=== PATIENT | male | born 1970 | race Hispanic/Latino ===

== ENCOUNTER 2016-11-06 14:24 | Emergency (ER) | payer OTHER ==
[~2016-11-06] VITALS: Ht 167.6 cm; Wt 95.0 kg
[~2016-11-06 14:24] MED LIST: FLEXERIL5 M1 PO; NAPROSYN500 MG PO
[2016-11-06] MEDS ORDERED: LOSARTAN POTASS50 MG PO (17:00)
[2016-11-06] MEDS ORDERED: AUGMENTIN875TAB PO (20:14)
[2016-11-06] MEDS ORDERED: PERCOCET 5/325M1 TAB PO (20:14)
[2016-11-06 20:25] VITALS: BP 118/73
== END 2016-11-06 20:25 | disposition home or self-care (01) | DRG 605 ==
LOC: ED 14:24
PROC: 0HQGXZZ Repair Left Hand Skin, External Approach (ICD-10-PCS; principal; 2016-11-06)
DX: S61.211A Laceration without foreign body of left index finger without damage to nail, initial encounter (principal); I10 Essential (primary) hypertension; W31.2XXA Contact with powered woodworking and forming machines, initial encounter

== ENCOUNTER 2017-07-12 17:09 | Emergency (ER) | payer BC ==
[~2017-07-12] VITALS: Ht 167.6 cm; Wt 88.4 kg
[~2017-07-12 17:09] MED LIST changes: +AUGMENTIN875TAB PO; +LOSARTAN POTASS50 MG PO; +PERCOCET 5/325M1 TAB PO
[2017-07-12 18:31] LABS: HEMATOCRIT 41.9 % (39.0-50.0); HEMOGLOBIN 14.5 g/dl (14.0-18.0); IMMATURE GRANULOCYTES 0.3 % (0.0-1.0); MEAN CELL VOLUME 86.2 fL CALC (80.0-100.0); MEAN CORPUSCULAR HGB 29.8 pG CALC (26.0-32.0); MEAN CORPUSCULAR HGB CONC 34.6 g/L CALC (32.0-36.0); NEUT# 4.83 thou/uL (1.82-7.42); RED BLOOD COUNT 4.86 mill/uL (4.70-6.10); RED CELL DISTRI WIDTH 11.9 % (11.5-15.5)
[2017-07-12 18:42] LABS: URINE BILIRUBIN - DIPSTICK NEGATIVE (NEGATIVE); URINE BLOOD DIPSTICK NEGATIVE (NEGATIVE); URINE CLARITY CLEAR; URINE COLOR YELLOW; URINE GLUCOSE - DIPSTICK NEGATIVE (NEGATIVE); URINE KETONE NEGATIVE (NEGATIVE); URINE LEUK ESTERASE NEGATIVE (NEGATIVE); URINE NITRITE - DIPSTICK NEGATIVE (Negative); URINE PROTEIN - DIPSTICK NEGATIVE (NEG-TRACE); URINE UROBILINOGEN - DIPSTICK 0.2 E.U./dL (0.2)
[2017-07-12 18:47] LABS: BARBITURATES NEGATIVE (NEGATIVE); COCAINE NEGATIVE (NEGATIVE); METHADONE NEGATIVE (NEGATIVE); OXCYCODONE NEGATIVE (NEGATIVE); TETRAHYDROCANNABIONOL NEGATIVE (NEGATIVE); TRICYLIC ANTIDEPRESSANTS NEGATIVE (NEGATIVE)
[2017-07-12 18:58] LABS: ALBUMIN 4.5 g/dL (3.2-5.0); ALKALINE PHOSPHATASE 70 u/l (38-126); ANION GAP 16 (6-22 (CALC)); BILIRUBIN, TOTAL 0.7 mg/dL (0.0-1.4); BUN 17 mg/dL (9-20); BUN/CREATININE RATIO 16 (12-20 (CALC)); CALCIUM 9.5 mg/dL (8.4-10.2); CARBON DIOXIDE 28 mmol/l (22-30); CHLORIDE 104 mmol/l (95-108); CREATININE 1.1 mg/dL (0.7-1.3); GFR > 60 ML/MIN (>=60 (CALC)); GFR FOR AFR.AMER. > 60 ML/MIN (>=60 (CALC)); GLUCOSE 92 mg/dL (75-110); SGOT/AST 30 u/l (17-59); SGPT/ALT 51 u/l (21-72); SODIUM 145 mmol/l (137-146); TOTAL PROTEIN 7.8 g/dL (6.3-8.2)
[2017-07-12] MEDS ORDERED: FIORICET PO (19:39)
[2017-07-12 19:48] VITALS: BP 137/89
== END 2017-07-12 19:56 | disposition home or self-care (01) | DRG 103 ==
LOC: ED 17:09
PROVIDERS: Emergency Medicine
DX: R51 Headache (principal)

== ENCOUNTER 2017-08-05 16:02 | Emergency (ER) | payer OTHER, BC ==
[~2017-08-05] VITALS: Ht 167.6 cm; Wt 89.0 kg
[~2017-08-05 16:02] MED LIST changes: +FIORICET PO
[2017-08-05] MEDS ORDERED: MOTRIN800 MG PO (16:18)
[2017-08-05] MEDS ORDERED: CARVEDILOL6.25 MG PO (16:25)
[2017-08-05] MEDS ORDERED: LOSARTAN POTASS1 TA3 PO (16:26)
[2017-08-05 17:03] VITALS: BP 139/74
== END 2017-08-05 17:03 | disposition home or self-care (01) | DRG 563 ==
LOC: ED 16:02
DX: S63.502A Unspecified sprain of left wrist, initial encounter (principal); S60.212A Contusion of left wrist, initial encounter; I10 Essential (primary) hypertension; W23.1XXA Caught, crushed, jammed, or pinched between stationary objects, initial encounter; Y92.89 Other specified places as the place of occurrence of the external cause

== ENCOUNTER 2021-03-14 10:15 | Emergency (ER) | payer BC, OTHER ==
[~2021-03-14] VITALS: Ht 167.6 cm; Wt 86.2 kg
[~2021-03-14 10:15] MED LIST changes: +CARVEDILOL6.25 MG PO; +LOSARTAN POTASS1 TA3 PO; +MOTRIN800 MG PO
[2021-03-14 10:25] VITALS: BP 149/96
[2021-03-14] MEDS ORDERED: PRAVASTATIN10 MG PO (10:36)
[2021-03-14] MEDS ORDERED: GENTAMICIN SULF5 ML OD (10:46)
== END 2021-03-14 11:06 | disposition home or self-care (01) | DRG 125 ==
LOC: ED 10:15
PROC: 08CNXZZ Extirpation of Matter from Right Upper Eyelid, External Approach (ICD-10-PCS; principal; 2021-03-14)
DX: T15.11XA Foreign body in conjunctival sac, right eye, initial encounter (principal); I10 Essential (primary) hypertension; X58.XXXA Exposure to other specified factors, initial encounter